=== PATIENT | male | born 1955 | race Caucasian/White ===

== ENCOUNTER 2021-02-09 11:19 | Observation (INO) | payer MEDICARE ==
[~2021-02-09] VITALS: Ht 175.3 cm; Wt 116.6 kg
[~2021-02-09 11:19] MED LIST: BACTRIM DS TAB1 EACH PO; FLOMAX0.4 MG PO; KEFLEX500 MG PO; TOPROL XL25 MG PO; TORADOL 10 MG T10 MG PO; ZOFRAN4 MG PO
[2021-02-09 14:54] LABS: HEMOGLOBIN 17.6 gm/dl (14.0-17.5); RED BLOOD COUNT 5.3 M/UL (4.20-5.50); WHITE BLOOD COUNT 13.5 K/UL (4.5-11.0)
[2021-02-09] MEDS ORDERED: TRELEGY ELLIPT1 EACH INH (17:18)
[2021-02-09] MEDS ORDERED: METOPROLOL TART25 MG PO (17:18)
[2021-02-09] MEDS ORDERED: MULTIVITAMIN1 EACH PO (17:19)
[2021-02-09] MEDS ORDERED: COMBIVENT RESPIM4 GM INH (17:19)
[2021-02-10 06:58] LABS: HEMOGLOBIN 15.2 gm/dl (14.0-17.5); RED BLOOD COUNT 4.71 M/UL (4.20-5.50); WHITE BLOOD COUNT 9.9 K/UL (4.5-11.0)
[2021-02-10] MEDS ORDERED: LEVOFLOXACIN500 MG PO (10:04)
== END 2021-02-10 15:44 | disposition home or self-care (01) ==
LOC: ER1 11:19 → 3 EAST 16:10 → CDU 16:10 → 3 EAST 16:10
PROVIDERS: Physician Assistant; Physician Assistant Medical; ADMIT Internal Medicine
DX: L03.113 Cellulitis of right upper limb (principal); I10 Essential (primary) hypertension; B19.20 Unspecified viral hepatitis C without hepatic coma; J44.9 Chronic obstructive pulmonary disease, unspecified; Z87.891 Personal history of nicotine dependence; Z88.0 Allergy status to penicillin; Z79.899 Other long term (current) drug therapy; Z20.822 Contact with and (suspected) exposure to COVID-19
CPT/HCPCS: 80048; 83605; 83735; 85025; 85027; 85652; 86140; 87040; 93971; 99284; G0378; J1956; J3370; J7070; U0002

== ENCOUNTER 2021-03-31 15:36 | Emergency (ER) | payer MEDICARE ==
[~2021-03-31 15:36] MED LIST changes: +COMBIVENT RESPIM4 GM INH; +LEVOFLOXACIN500 MG PO; +METOPROLOL TART25 MG PO; +MULTIVITAMIN1 EACH PO; +TRELEGY ELLIPT1 EACH INH
[2021-03-31 17:06] LABS: HEMOGLOBIN 17.5 gm/dl (14.0-17.5); RED BLOOD COUNT 5.5 M/UL (4.20-5.50)
[2021-03-31] MEDS ORDERED: PROTONIX40 MG PO (22:18)
[2021-03-31] MEDS ORDERED: ONDANSETRON ODT4 MG SL (22:18)
== END 2021-03-31 22:50 | disposition home or self-care (01) ==
LOC: ER1 15:36
PROVIDERS: Physician Assistant Medical
DX: K52.9 Noninfective gastroenteritis and colitis, unspecified (principal); E86.0 Dehydration; I10 Essential (primary) hypertension; Z88.0 Allergy status to penicillin; Z87.891 Personal history of nicotine dependence; Z90.49 Acquired absence of other specified parts of digestive tract; Z20.822 Contact with and (suspected) exposure to COVID-19
CPT/HCPCS: 80053; 81001; 83605; 83690; 85025; 87086; 96374; 99284; J2405; J7030; J7040; U0002